=== PATIENT | male | born 1960 | race American Indian/Alaskan Native ===

== ENCOUNTER 2018-06-07 15:12 | Outpatient (CLI) | payer OTHER ==
--- NOTE | 2018-06-07 16:26 | XRay Report ---
XRAY BILATERAL HIPS AND AP PELVIS THREE VIEWS: 06/07/18 CLINICAL: Bilateral hip pain FINDINGS: Right: No fracture or dislocation. Mild osteoarthritis with narrowing of the superior-lateral joint space with mild adjacent acetabular eburnation. A small superolateral osteophytes. Normal soft tissues. Left: No fracture or dislocation. The left hip joint is normal.Normal soft tissues. The pelvic bones are intact.Mild bilateral SI joint sclerosis. No erosions. IMPRESSION: Mild osteoarthritis of the right hip. Normal left hip. Bilateral sacroiliitis without erosions.
== END 2018-06-07 15:13 | disposition home or self-care (01) ==
LOC: SPVIMAG 15:12
DX: M16.0 Bilateral primary osteoarthritis of hip (principal)
CPT/HCPCS: 73521

== ENCOUNTER 2018-08-11 07:58 | Outpatient (CLI) | payer OTHER ==
--- NOTE | 2018-08-11 11:43 | Ultrasound Report ---
RIGHT UPPER QUADRANT ABDOMINAL ULTRASOUND: 08/11/18 07:58:00 CLINICAL: Epigastric pain and right upper quadrant pain. FINDINGS: High-resolution ultrasound demonstrated an enlarged liver with marked diffuse increased echogenicity. The right lobe of the liver measures at least 18 cm in length. Abnormal attenuation of the sound and poor visualization of the hepatic vasculature. The inferior vena cava is normal. Gallbladder is normally distended with no stones. The gall bladder wall measures 0.5 mm in thickness. Normal intrahepatic and extra hepatic bile ducts. The common bile duct measures 5.5 mm diameter. The pancreas was not imaged because of body habitus and bowel gas. Abdominal aorta was also not imaged because of body habitus and bowel gas. The right kidney is normal and measures 9.7 x 6.8 x 5.6cm. No ascites or mass. IMPRESSION: 1. Hepatomegaly and increased liver echogenicity most likely due to hepatic steatosis. 2. Normal biliary tract with no cholelithiasis or evidence of choledocholithiasis. 3. Limited imaging of the pancreas.
== END 2018-08-11 07:59 | disposition home or self-care (01) ==
LOC: SPVWC 07:58
PROVIDERS: ATTEND Internal Medicine Gastroenterology
DX: R16.0 Hepatomegaly, not elsewhere classified (principal); K30 Functional dyspepsia; R10.11 Right upper quadrant pain
CPT/HCPCS: 76705

== ENCOUNTER 2018-09-02 07:13 | Day surgery (SDC) | payer OTHER ==
[2018-09-02] MEDS ORDERED: TETRACAINE 0.5% OS SCH (08:15)
--- NOTE | 2018-09-02 08:23 | Anesthesia Consultation ---
Anesthesia Consult and Med Hx Date of service: 09/02/18 - Airway Anesthetic Teeth Evaluation: Good ROM Head & Neck: Adequate Mental/Hyoid Distance: Adequate Mallampati Class: Class I Intubation Access Assessment: Good - Pulmonary Exam CTA: Yes - Cardiac Exam Cardiac Exam: RRR - Pre-Operative Health Status ASA Pre-Surgery Classification: ASA3 Proposed Anesthetic Plan: MAC - Pulmonary Hx Smoking: Yes (35 YEARS DOWN TO 1/4PPD) Hx Asthma: No Hx Respiratory Symptoms: No COPD: No - Cardiovascular System Hx Hypertension: Yes Hx Heart Attack/AMI: No Hx Percutaneous Transluminal Coronary Angioplasty (PTCA): No - Central Nervous System Hx Seizures: No CVA: No - Gastrointestinal Hx Gastroesophageal Reflux Disease: Yes (well controlled) - Endocrine Hx Renal Disease: No Hx Liver Disease: No Hx Insulin Dependent Diabetes: Yes Hx Thyroid Disease: No - Other Systems Hx Cancer: No Hx Obesity: Yes (s/p GASTRIC BYPASS 2001) - Additional Comments Anesthesia Medical History Comments: No hx anesthetic complications.
--- NOTE | 2018-09-02 08:23 | Anesthesia Day of Surgery ---
Anesthesia Day of Surgery - Day of Surgery Patient Examined: Yes Patient H&P Reviewed: Yes Patient is NPO: Yes
[2018-09-02] MEDS: AK-Dilate OS SCH ×3 (08:34→08:47)
[2018-09-02] MEDS: VIGAMOX OS SCH ×3 (08:34→08:46)
[2018-09-02] MEDS: MYDRIACYL OS SCH ×3 (08:35→08:47)
[2018-09-02] MEDS ORDERED: PRED FORTE 1% OS SCH (10:00)
[2018-09-02] MEDS ORDERED: VERSED ONE (10:12)
[2018-09-02] MEDS ORDERED: SUBLIMAZE ONE (10:13)
--- NOTE | 2018-09-02 10:27 | Operative Report ---
Operative Report Operative Report: PATIENT'S NAME: DATE OF : DATE OF SURGERY: 09/02/2018 PREOPERATIVE DIAGNOSIS: Cataract left eye POSTOPERATIVE DIAGNOSIS: Same OPERATIVE PROCEDURE: Phacoemulsification with intraocular lens implantation, left eye SURGEON: Adelaida Villatoro M.D. ZIPPER TRIMMER SURGEON: Janina Lens: [id number] 20.5 D ANESTHESIA: Monitored anesthesia care in combination with topical and intracameral anesthesia because of the established specific risk of reflux, arrhythmias, or anxiety attacks associated with ocular manipulation, as well as the difficulty of the die sinker apprentice to manage such potentially catastrophic events while simultaneously attempting to complete the surgical procedure and was deemed necessary for the patient's safety to have an Porcelain Technician present during the procedure whenever possible. An Porcelain Technician was utilized to regulate the intravenous sedation of the patient so the patient was cooperative yet not asleep in order for the patient to successfully maintain fixation of the eye on the operating light of the microscope. COMPLICATIONS: No surgical complications No blood loss. ALLERGIES: Allopurinol celecoxib PROGNOSIS: Excellent INDICATIONS FOR SURGERY: The patient is undergoing surgery in the hopes of eliminating or improving these visual difficulties. PROCEDURE: After arriving at the surgery center, the patient was given topical anesthetic and dilating drops, as noted in the record. The patient was then taken into the operating room and given more anesthetic drops. The eyelids , lashes, and lid margins were scrubbed with Betadine solution, and the patient was draped. The Nurse Porcelain Technician administered IV sedation and monitored the patient during the procedure. The eye was then fixated with a 0.12, and a stab incision was made in the peripheral clear cornea into the anterior chamber. This was made on my left side. Viscoelastic was next used to fill the anterior chamber. The eye was once again fixated with the 0.12 forceps and a keratome was used make an incision in clear cornea peripherally on my right hand side temporally. The capsule forceps were used to open the central anterior capsule and then make a continuous round capsulotomy. Hydrodissection was carried out utilizing a cannula and balanced salt solution to delineate the cortical material from the capsule and the nucleus from the cortical material. The phaco tip was introduced into the eye and used to remove the anterior cortical material in the area of the capsulotomy. Then the phaco tip was buried into the nucleus, and a chopping instrument was introduced into the eye and used to provide countertraction in the nucleus between this instrument and the phaco tip fracturing the nucleus. This procedure was repeated multiple times, providing multiple small segments of the lens, and then the phaco tip was used to remove each of these segments. An I/A tip was then used to remove the remaining cortex. The anterior chamber was refilled with viscoelastic. An one-piece, acrylic intraocular lens was then placed into an inserting cartridge. The tip of the inserting cartridge was introduced into the keratome incision and into the anterior chamber. The implant was gently advanced through the cartridge and into the eye, where it unfolded, and both haptics were placed in the capsular bag, where it centered nicely and appeared to be well fixated. After placement of the intraocular lens, the I~and~A handpiece was placed back into the eye and used to remove the viscoelastic, including viscoelastic that was behind the optic of the intraocular lens. The anterior chamber was then filled with balanced salt solution, and hydration of the wound was used to cause swelling of the wound and more appropriate watertight closure. When the wound was found to be firm, the patient was asked to comment on how bright the light was. If there was no light perception at all or if the light was substantially dimmer than during the rest of the surgery, the amount of fluid in the eye was decompressed to lower the intraocular pressure until the patient could see the bright light again. This was done to avoid any damage or decreased blood flow to the optic nerve. MEDICATIONS APPLIED AT END OF SURGERY: One drop of Pred Forte and Vigamox The patient was given a shield to wear at night and was instructed not to rub or push on the eye. DISCHARGE SUMMARY: The patient was released in stable condition. The patient and those with the patient were given a written sheet of postoperative instructions and counseling on any abnormal laboratory studies. The patient is to see us tomorrow for follow-up in the office and is to call immediately for any difficulties. Adelaida Villatoro M.D. Date
--- NOTE | 2018-09-02 10:29 | Short Stay Summary ---
Short Stay Documentation Date of service: 09/02/18 - History H&P: obtained from office - Allergies and Medications Current Medications: Allergies allopurinol Allergy (Verified 08/27/18 15:30) Rash and Hives celecoxib [From Celebrex] Allergy (Verified 08/27/18 15:30) Rash and Hives Home Medications Medication Instructions Recorded Confirmed Last Taken Type Cetirizine HCl [ZyrTEC] 10 mg PO DAILY 08/27/18 09/02/18 08/30/18 22:00 History Colchicine 0.6 mg PO DAILY 08/27/18 09/02/18 08/30/18 22:00 History Cyclobenzaprine [Flexeril] 10 mg PO TID PRN 08/27/18 09/02/18 09/01/18 22:00 History Furosemide [Lasix TAB] 20 mg PO DAILY 08/27/18 09/02/18 09/01/18 22:00 History Gabapentin [Neurontin] 300 mg PO TID 08/27/18 09/02/18 09/01/18 22:00 History HYDROcodone/APAP 7.5-325 [[place] 1 tab PO Q6H PRN 08/27/18 09/02/18 09/02/18 05: 00 History 7.5-325 mg TAB] Insulin Glargine,Hum.rec.anlog 15 unit SQ QHS 08/27/18 09/02/18 08/30/18 22:00 History [Basaglar Kwikpen U-100] Metformin HCl [Glucophage] 1,000 mg PO BID 08/27/18 09/02/18 09/01/18 22:00 History Olmesartan Medoxomil 20 mg PO DAILY 08/27/18 09/02/18 09/01/18 05:00 History Omeprazole 20 mg PO DAILY 08/27/18 09/02/18 09/01/18 09:00 History Simvastatin [Zocor TAB] 5 mg PO QHS 08/27/18 09/02/18 09/01/18 22:00 History Zolpidem [Ambien] 10 mg PO QHS 08/27/18 09/02/18 Unknown History Active Medications Moxifloxacin HCl (Vigamox) 1 drops OS Q5MIN VICTOR M Stop: 09/04/18 08:11 Last Admin: 09/02/18 08:46 Dose: 1 drops Phenylephrine HCl (Ak-Dilate) 1 drops OS Q5MIN VICTOR M Stop: 09/04/18 08:10 Last Admin: 09/02/18 08:47 Dose: 1 drops Prednisolone Acetate (Pred Forte 1%) 1 drops OS QID VICTOR M Stop: 09/02/18 12:00 Tetracaine HCl (Tetracaine 0.5%) 1 drops OS ONCE VICTOR M Stop: 09/02/18 15:00 Last Admin: 09/02/18 08:33 Dose: 1 drops Tropicamide (Mydriacyl) 1 drops OS Q5MIN VICTOR M Stop: 09/04/18 08:12 Last Admin: 09/02/18 08:47 Dose: 1 drops - Brief post op/procedure progress note Date of procedure: 09/02/18 Pre-op diagnosis: left cataract Post-op diagnosis: same Procedure: Phacoemulsification with intraocular lens insertion left eye Anesthesia: MAC, local Surgeon: ARIANNA RIDDLE Estimated blood loss: none Pathology: none Condition: stable - Disposition Condition at discharge: Good Disposition: DC-01 TO HOME OR SELFCARE - Discharge Diagnoses (1) Nuclear sclerosis of left eye Status: Resolved Short Stay Discharge Plan Follow up with: LORENZO HUFFMAN MD, PHD [Primary Care Provider] - 7 Days
[2018-09-02] MEDS ORDERED: DIAMOX PO NR (10:47)
--- NOTE | 2018-09-02 12:12 | Post Anesthesia Evaluation ---
- Post Anesthesia Evaluation Patient Participated: Yes Airway Patent: Yes Stable Respiratory Function: Yes Nausea/Vomiting: No Temp > 96.8F: Yes Pain Manageable: Yes Adequeate Hydration: Yes Anesthesia Complications: No
[2018-09-02 13:38] VITALS: BP 115/79
== END 2018-09-02 11:12 | disposition home or self-care (01) ==
LOC: OR 07:13
DX: H25.12 Age-related nuclear cataract, left eye (principal); E11.9 Type 2 diabetes mellitus without complications; E78.00 Pure hypercholesterolemia, unspecified; I10 Essential (primary) hypertension; K21.9 Gastro-esophageal reflux disease without esophagitis; M19.90 Unspecified osteoarthritis, unspecified site; F17.210 Nicotine dependence, cigarettes, uncomplicated; E66.9 Obesity, unspecified; Z68.35 Body mass index [BMI] 35.0-35.9, adult; Z98.890 Other specified postprocedural states; Z79.899 Other long term (current) drug therapy; Z79.84 Long term (current) use of oral hypoglycemic drugs; Z79.4 Long term (current) use of insulin; Z88.8 Allergy status to other drugs, medicaments and biological substances; Z98.49 Cataract extraction status, unspecified eye
CPT/HCPCS: 66984; 82962; J2250; J3010; V2632

== ENCOUNTER 2018-09-16 05:38 | Day surgery (SDC) | payer OTHER ==
[2018-09-16] MEDS ORDERED: TETRACAINE 0.5% OD SCH (06:00)
[2018-09-16] MEDS: MYDRIACYL OD SCH ×3 (06:30→06:40)
[2018-09-16] MEDS: VIGAMOX OD SCH ×3 (06:30→06:40)
[2018-09-16] MEDS: AK-Dilate OD SCH ×3 (06:30→06:40)
[2018-09-16] MEDS ORDERED: VERSED ONE (07:18)
--- NOTE | 2018-09-16 08:03 | Anesthesia Consultation ---
Anesthesia Consult and Med Hx Date of service: 09/16/18 - Airway Anesthetic Teeth Evaluation: Dentures (upper), Partials (lower) ROM Head & Neck: Adequate Mental/Hyoid Distance: Adequate Mallampati Class: Class III Intubation Access Assessment: Possibly Difficult - Pulmonary Exam CTA: Yes - Cardiac Exam Cardiac Exam: RRR - Pre-Operative Health Status ASA Pre-Surgery Classification: ASA3 Proposed Anesthetic Plan: General - Pulmonary Hx Smoking: Yes (35 YEARS / PPD) Hx Asthma: No Hx Respiratory Symptoms: No COPD: No - Cardiovascular System Hx Hypertension: Yes (took valsartan yesterday) Hx Heart Attack/AMI: No Hx Percutaneous Transluminal Coronary Angioplasty (PTCA): No - Central Nervous System Hx Seizures: No CVA: No - Gastrointestinal Hx Gastroesophageal Reflux Disease: Yes (well controlled) - Endocrine Hx Renal Disease: No Hx Liver Disease: No Hx Non-Insulin Dependent Diabetes: Yes Hx Thyroid Disease: No - Other Systems Hx Cancer: No Hx Obesity: Yes (s/p GASTRIC BYPASS 2001) - Additional Comments Anesthesia Medical History Comments: No hx anesthetic complications.
--- NOTE | 2018-09-16 08:04 | Anesthesia Day of Surgery ---
Anesthesia Day of Surgery - Day of Surgery Patient Examined: Yes Patient H&P Reviewed: Yes Patient is NPO: Yes
[2018-09-16] MEDS ORDERED: PRED FORTE 1% ONE (08:08)
[2018-09-16] MEDS ORDERED: DIAMOX PO NR (08:26)
[2018-09-16] MEDS ORDERED: PRED FORTE 1% OD SCH (10:00)
--- NOTE | 2018-09-16 10:01 | Operative Report ---
Operative Report Operative Report: PATIENT'S NAME: DATE OF : DATE OF SURGERY: 09/16/2018 PREOPERATIVE DIAGNOSIS: Cataract right eye POSTOPERATIVE DIAGNOSIS: Same OPERATIVE PROCEDURE: Phacoemulsification with intraocular lens implantation, right eye SURGEON: Adelaida Villatoro M.D. BIOMATHEMATICIAN SURGEON: Janina Lens: [id number] 20.0 D ANESTHESIA: Monitored anesthesia care in combination with topical and intracameral anesthesia because of the established specific risk of reflux, arrhythmias, or anxiety attacks associated with ocular manipulation, as well as the difficulty of the library services dean to manage such potentially catastrophic events while simultaneously attempting to complete the surgical procedure and was deemed necessary for the patient's safety to have an Anchor Tack Puller present during the procedure whenever possible. An Anchor Tack Puller was utilized to regulate the intravenous sedation of the patient so the patient was cooperative yet not asleep in order for the patient to successfully maintain fixation of the eye on the operating light of the microscope. COMPLICATIONS: No surgical complications No blood loss. ALLERGIES: Allopurinol celecoxib PROGNOSIS: Excellent INDICATIONS FOR SURGERY: The patient is undergoing surgery in the hopes of eliminating or improving these visual difficulties. PROCEDURE: After arriving at the surgery center, the patient was given topical anesthetic and dilating drops, as noted in the record. The patient was then taken into the operating room and given more anesthetic drops. The eyelids , lashes, and lid margins were scrubbed with Betadine solution, and the patient was draped. The Nurse Anchor Tack Puller administered IV sedation and monitored the patient during the procedure. The eye was then fixated with a 0.12, and a stab incision was made in the peripheral clear cornea into the anterior chamber. This was made on my left side. Viscoelastic was next used to fill the anterior chamber. The eye was once again fixated with the 0.12 forceps and a keratome was used make an incision in clear cornea peripherally on my right hand side temporally. The capsule forceps were used to open the central anterior capsule and then make a continuous round capsulotomy. Hydrodissection was carried out utilizing a cannula and balanced salt solution to delineate the cortical material from the capsule and the nucleus from the cortical material. The phaco tip was introduced into the eye and used to remove the anterior cortical material in the area of the capsulotomy. Then the phaco tip was buried into the nucleus, and a chopping instrument was introduced into the eye and used to provide countertraction in the nucleus between this instrument and the phaco tip fracturing the nucleus. This procedure was repeated multiple times, providing multiple small segments of the lens, and then the phaco tip was used to remove each of these segments. An I/A tip was then used to remove the remaining cortex. The anterior chamber was refilled with viscoelastic. An one-piece, acrylic intraocular lens was then placed into an inserting cartridge. The tip of the inserting cartridge was introduced into the keratome incision and into the anterior chamber. The implant was gently advanced through the cartridge and into the eye, where it unfolded, and both haptics were placed in the capsular bag, where it centered nicely and appeared to be well fixated. After placement of the intraocular lens, the I~and~A handpiece was placed back into the eye and used to remove the viscoelastic, including viscoelastic that was behind the optic of the intraocular lens. The anterior chamber was then filled with balanced salt solution, and hydration of the wound was used to cause swelling of the wound and more appropriate watertight closure. When the wound was found to be firm, the patient was asked to comment on how bright the light was. If there was no light perception at all or if the light was substantially dimmer than during the rest of the surgery, the amount of fluid in the eye was decompressed to lower the intraocular pressure until the patient could see the bright light again. This was done to avoid any damage or decreased blood flow to the optic nerve. MEDICATIONS APPLIED AT END OF SURGERY: One drop of Pred Forte and Vigamox The patient was given a shield to wear at night and was instructed not to rub or push on the eye. DISCHARGE SUMMARY: The patient was released in stable condition. The patient and those with the patient were given a written sheet of postoperative instructions and counseling on any abnormal laboratory studies. The patient is to see us tomorrow for follow-up in the office and is to call immediately for any difficulties. Adelaida Villatoro M.D. Date
--- NOTE | 2018-09-16 10:02 | Short Stay Summary ---
Short Stay Documentation Date of service: 09/16/18 - History H&P: obtained from office - Allergies and Medications Current Medications: Allergies allopurinol Allergy (Verified 09/15/18 16:13) Rash and Hives celecoxib [From Celebrex] Allergy (Verified 09/15/18 16:13) Rash and Hives Home Medications Medication Instructions Recorded Confirmed Last Taken Type Cetirizine HCl [ZyrTEC] 10 mg PO DAILY 08/27/18 09/16/18 09/15/18 09:00 History Colchicine 0.6 mg PO DAILY 08/27/18 09/16/18 09/15/18 09:00 History Cyclobenzaprine [Flexeril] 10 mg PO TID PRN 08/27/18 09/16/18 09/15/18 09:00 History Furosemide [Lasix TAB] 20 mg PO DAILY 08/27/18 09/16/18 09/15/18 09:00 History Gabapentin [Neurontin] 300 mg PO TID 08/27/18 09/16/18 09/15/18 09:00 History HYDROcodone/APAP 7.5-325 [[place] 1 tab PO Q6H PRN 08/27/18 09/16/18 09/16/18 04: 00 History 7.5-325 mg TAB] Insulin Glargine,Hum.rec.anlog 15 unit SQ QHS 08/27/18 09/16/18 09/15/18 09:00 History [Basaglar Kwikpen U-100] Metformin HCl [Glucophage] 1,000 mg PO BID 08/27/18 09/16/18 09/15/18 16:00 History Olmesartan Medoxomil 20 mg PO DAILY 08/27/18 09/16/18 09/15/18 09:00 History Omeprazole 20 mg PO DAILY 08/27/18 09/16/18 09/15/18 09:00 History Simvastatin [Zocor TAB] 5 mg PO QHS 08/27/18 09/16/18 09/15/18 09:00 History Zolpidem [Ambien] 10 mg PO QHS 08/27/18 09/16/18 09/15/18 19:00 History Active Medications Acetazolamide (Diamox) 500 mg PO ONCE NR Stop: 09/16/18 15:00 Last Admin: 09/16/18 08:51 Dose: 500 mg Moxifloxacin HCl (Vigamox) 1 drops OD Q5MIN VICTOR M Stop: 09/18/18 06:01 Last Admin: 09/16/18 06:40 Dose: 1 drops Phenylephrine HCl (Ak-Dilate) 1 drops OD Q5MIN VICTOR M Stop: 09/18/18 06:01 Last Admin: 09/16/18 06:40 Dose: 1 drops Prednisolone Acetate (Pred Forte 1%) 1 drops OD QID VICTOR M Last Admin: 09/16/18 08:41 Dose: 1 drops Tropicamide (Mydriacyl) 1 drops OD Q5MIN VICTOR M Stop: 09/18/18 06:01 Last Admin: 09/16/18 06:40 Dose: 1 drops - Brief post op/procedure progress note Date of procedure: 09/16/18 Pre-op diagnosis: cataract right eye Post-op diagnosis: same Procedure: Phacoemulsification with intraocular lens insertion right eye Anesthesia: MAC, local Surgeon: ARIANNA RIDDLE Estimated blood loss: none Pathology: none Condition: stable - Disposition Condition at discharge: Good Disposition: DC-01 TO HOME OR SELFCARE - Discharge Diagnoses (1) Cortical age-related cataract of right eye Status: Resolved Short Stay Discharge Plan Additional Instructions: FOLLOW SURGEON INSTRUCTION SHEETS. Follow up with: LORENZO HUFFMAN MD, PHD [Primary Care Provider] - 7 Days Forms: [facility] [place] [facility]
[2018-09-16 15:22] VITALS: BP 112/77
== END 2018-09-16 09:10 | disposition home or self-care (01) ==
LOC: OR 05:38
DX: H25.011 Cortical age-related cataract, right eye (principal); F17.210 Nicotine dependence, cigarettes, uncomplicated; E78.00 Pure hypercholesterolemia, unspecified; I10 Essential (primary) hypertension; E11.9 Type 2 diabetes mellitus without complications; M81.0 Age-related osteoporosis without current pathological fracture; K21.9 Gastro-esophageal reflux disease without esophagitis; E66.9 Obesity, unspecified; Z68.35 Body mass index [BMI] 35.0-35.9, adult; Z96.653 Presence of artificial knee joint, bilateral; Z98.890 Other specified postprocedural states; Z79.899 Other long term (current) drug therapy; Z88.8 Allergy status to other drugs, medicaments and biological substances; Z98.42 Cataract extraction status, left eye
CPT/HCPCS: 66984; 82962; J2250; V2632

== ENCOUNTER 2019-04-14 08:39 | Day surgery (SDC) | payer BC, OTHER ==
[2019-04-14] MEDS ORDERED: PEPCID IV SCH (10:00)
[2019-04-14] MEDS ORDERED: VERSED IV NR (10:00)
[2019-04-14] MEDS ORDERED: LACTATED RINGERS 1,000 ML IV SCH (10:00)
[2019-04-14] MEDS ORDERED: NEURONTIN PO NR (10:00)
[2019-04-14] MEDS ORDERED: SUBLIMAZE IV NR (10:21)
[2019-04-14] MEDS ORDERED: MARCAINE-EPI 0.5%-1:200,000 INFILTRATI ONE ×2 (10:33→11:18)
[2019-04-14] MEDS ORDERED: XYLOCAINE 1% 20 mL ONE (10:34)
[2019-04-14] MEDS ORDERED: TORADOL ONE (10:51)
[2019-04-14] MEDS ORDERED: DIPRIVAN 10 MG/ML IV ONE (10:51)
[2019-04-14] MEDS ORDERED: DECADRON ONE (10:51)
[2019-04-14] MEDS ORDERED: SUBLIMAZE ONE (10:51)
[2019-04-14] MEDS ORDERED: ZOFRAN ONE (10:51)
[2019-04-14] MEDS ORDERED: ADRENALINE P/F ONE (11:18)
--- NOTE | 2019-04-14 11:41 | Anesthesia Consultation ---
Anesthesia Consult and Med Hx - Airway Anesthetic Teeth Evaluation: Good ROM Head & Neck: Adequate Mental/Hyoid Distance: Adequate Mallampati Class: Class II Intubation Access Assessment: Good - Pulmonary Exam CTA: Yes - Cardiac Exam Cardiac Exam: RRR - Pre-Operative Health Status ASA Pre-Surgery Classification: ASA2 Proposed Anesthetic Plan: General Nerve Block: IS - Pulmonary Hx Smoking: Yes (11/26 PPD X 36 YRS) Hx Asthma: No Hx Respiratory Symptoms: No COPD: No Hx Sleep Apnea: Yes (DX SLEEP APNEA , NO CPAP USE.) - Cardiovascular System Hx Hypertension: Yes (X 35 YRS) Hx Heart Attack/AMI: No Hx Percutaneous Transluminal Coronary Angioplasty (PTCA): No - Central Nervous System Hx Seizures: No CVA: No Hx Back Pain: Yes (CHRONIC NECK AND BACK PAIN) - Gastrointestinal Hx Gastroesophageal Reflux Disease: Yes (well controlled) - Endocrine Hx Renal Disease: No Hx Liver Disease: No Hx Insulin Dependent Diabetes: Yes Hx Non-Insulin Dependent Diabetes: Yes Hx Thyroid Disease: No - Other Systems Hx Cancer: No Hx Obesity: Yes (s/p GASTRIC BYPASS 2001)
[2019-04-14] MEDS ORDERED: DILAUDID IV PRN (11:42)
[2019-04-14] MEDS ORDERED: ZOFRAN IV PRN (11:42)
--- NOTE | 2019-04-14 11:42 | Anesthesia Day of Surgery ---
Anesthesia Day of Surgery - Day of Surgery Patient Examined: Yes Patient H&P Reviewed: Yes Patient is NPO: Yes
[2019-04-14] MEDS ORDERED: ADRENALINE P/F IV ONE (13:03)
--- NOTE | 2019-04-14 14:39 | Procedure Note ---
Date of procedure: 04/14/19 Pre-op diagnosis: impingement syndrome left shoulder possible rotator cuff tear Post-op diagnosis: other (impingement syndrome left shoulder) Procedure: Arthroscopy left shoulder subacromial decompression Procedure The patient was brought to the OR after being given a scalene nerve block for postop pain management, he was placed on the table supine following induction with MAC anesthesia patient was turned into the right lateral decubitus position at which point the left shoulder was prepped and draped in the usual sterile manner. A timeout procedure was done to identify the patient and the correct operative site. Routine arthroscopic portals were made into the subacromial space examination of the subacromial space revealed patient had abundant bursal thickening with apparent partial thickness tears in the supraspinatus tendon along with a large bone spur noted at the distal acromion using a combination of arthroscopic shaver and tissue ablator the subacromial space was debrided of soft tissue and the arm was then rotated internally and externally to see if there were a full-thickness rotator cuff tear done was seen next the arthroscope was placed into the glenohumeral joint and examination here revealed the patient to have very little in the way of arthritic changes along the humeral head. In the glenoid fossa he was noted to have thinning of the labral tissue the biceps labral complex appeared to be intact without any undue tension noted next the arthroscope was removed from the glenohumeral joint and then repositioned into the subacromial space using a 5.5 bur or acromionizer the bone spurs were debrided. A second look was done to see if there are any any residual bony and soft tissue debris and none was seen the arthroscope was then removed the stab wounds were repaired routine postop dressings were applied and the patient tolerated the procedure Anesthesia: MAC, regional Surgeon: MC VARNER Medical Imaging Tech: BETTY CARVALHO Estimated blood loss: minimal Pathology: none Condition: stable Disposition: PACU
[2019-04-14] MEDS ORDERED: PERCOCET 5/325 PO PRN ×2 (14:52→16:00)
[2019-04-14 16:10] VITALS: BP 138/76
== END 2019-04-14 16:30 | disposition home or self-care (01) ==
LOC: OR 08:39
PROVIDERS: ATTEND Orthopaedic Surgery
DX: M75.42 Impingement syndrome of left shoulder (principal); G43.909 Migraine, unspecified, not intractable, without status migrainosus; E78.00 Pure hypercholesterolemia, unspecified; I10 Essential (primary) hypertension; G47.30 Sleep apnea, unspecified; K21.9 Gastro-esophageal reflux disease without esophagitis; F17.210 Nicotine dependence, cigarettes, uncomplicated; E66.9 Obesity, unspecified; F41.9 Anxiety disorder, unspecified; E11.9 Type 2 diabetes mellitus without complications; Z79.899 Other long term (current) drug therapy; Z96.653 Presence of artificial knee joint, bilateral; Z79.4 Long term (current) use of insulin; Z98.49 Cataract extraction status, unspecified eye; Z88.8 Allergy status to other drugs, medicaments and biological substances
CPT/HCPCS: 29822; 29826; 36415; 64415; 82962; 84132; J0171; J1100; J1885; J2250; J2405; J2704; J3010; J7120